=== PATIENT | female | born 2000 | race African-American/Black ===

== ENCOUNTER 2022-04-08 20:52 | Emergency (ER) | payer MEDICAID, OTHER ==
[~2022-04-08] VITALS: Ht 165.1 cm; Wt 60.8 kg
[~2022-04-08 20:52] MED LIST: DIVA-75 PO; FISH OIL; IMIPRAMINE; MELA3TAB40 PO; RISP1TAB97 PO
[2022-04-08] MEDS ORDERED: ACETAMINOPHEN 325MG TABLET PO ONE (21:45)
[2022-04-08] MEDS ORDERED: KETOROLAC 15MG/ML VIAL IV ONE (21:45)
[2022-04-08] MEDS ORDERED: SODIUM CHLORIDE 0.9% 1000ML BAG (SEPSIS BOLUS) IV ONE (21:45)
[2022-04-08 22:19] LABS: HEMATOCRIT. 35.2 % (36.0-48.0); HEMOGLOBIN. 11.8 g/dL (12.0-16.0); MEAN CORPUSCULAR HEMOGLOBIN 28.9 pg (28.0-32.0); MEAN CORPUSCULAR VOLUME 86.4 fL (81.0-99.0); MEAN PLATELET VOLUME 8.7 fl (7.4-10.4); PLATELET 175 x1000/uL (130-400); RED BLOOD CELL COUNT 4.08 mill/uL (4.2-5.4); RED CELL DISTRIBUTION WIDTH 13.4 % (11.6-14.6)
[2022-04-08 22:41] LABS: PLATELET ESTIMATE NORMAL
[2022-04-08 22:46] LABS: HCG SCREEN NEGATIVE
[2022-04-08 22:56] LABS: CLARITY URINE CLEAR (CLEAR); COLOR URINE YELLOW (YELLOW); KETONES URINE NEGATIVE (NEGATIVE); LEUKOCYTE ESTERASE URINE NEGATIVE (NEGATIVE); NITRITE URINE NEGATIVE (NEGATIVE); OCCULT BLOOD URINE NEGATIVE (NEGATIVE); PH URINE 7.5 (4.5-8.0); PROTEIN URINE NEGATIVE (NEGATIVE); SPECIFIC GRAVITY URINE 1.006 (1.005-1.030); UROBILINOGEN URINE 0.2 E.U./dL (0.2-1.0)
[2022-04-08 23:03] LABS: CHLORIDE 110 mEq/L (98-107)
[2022-04-08] MEDS ORDERED: IBUP-2028 MT (23:42)
[2022-04-09 00:04] VITALS: BP 115/49
== END 2022-04-09 00:06 | disposition home or self-care (01) ==
LOC: ER 20:52
DX: U07.1 COVID-19 (principal); B34.9 Viral infection, unspecified; J02.9 Acute pharyngitis, unspecified
CPT/HCPCS: 36415; 71045; 80053; 81003; 83605; 84145; 84703; 85025; 87040; 87086; 87426; 93005; 96361; 96374; 99285; C9803; J1885; J7030

== ENCOUNTER 2023-05-23 22:52 | Emergency (ER) | payer MEDICAID ==
[~2023-05-23] VITALS: Ht 162.6 cm; Wt 59.7 kg
[~2023-05-23 22:52] MED LIST changes: +IBUP-2028 MT
[2023-05-23 23:09] VITALS: O2SAT 99
[2023-05-23 23:38] LABS: BASOPHILS % 0.5 % (0.0-2.0); EOSINOPHILS % 1.2 % (0.0-5.0); HEMOGLOBIN. 11.3 g/dL (12.0-16.0); LYMPHOCYTES % 22.9 % (20.0-50.0); MEAN CORPUSCULAR VOLUME 86.3 fL (81.0-99.0); MEAN PLATELET VOLUME 8.1 fl (7.4-10.4); MONOCYTES % 11.8 % (2.0-8.0); NEUTROPHILS % 63.6 % (40.0-76.0); PLATELET 298 x1000/uL (130-400); RED BLOOD CELL COUNT 4.05 mill/uL (4.2-5.4); RED CELL DISTRIBUTION WIDTH 13.9 % (11.6-14.6)
[2023-05-23 23:46] LABS: CHLORIDE 110 mEq/L (98-107)
[2023-05-23 23:56] LABS: ETHANOL BLOOD < 10 mg/dL (-10)
[2023-05-24 05:37] LABS: CLARITY URINE TURBID (CLEAR); COLOR URINE DARK YELLOW (YELLOW); KETONES URINE TRACE (NEGATIVE); LEUKOCYTE ESTERASE URINE 1+ (NEGATIVE); NITRITE URINE POSITIVE (NEGATIVE); OCCULT BLOOD URINE 3+ (NEGATIVE); PH URINE 5.5 (4.5-8.0); PROTEIN URINE 1+ (NEGATIVE); SPECIFIC GRAVITY URINE 1.034 (1.005-1.030)
[2023-05-24 05:38] LABS: BASOPHILS % 0.5 % (0.0-2.0); EOSINOPHILS % 2.3 % (0.0-5.0); HEMOGLOBIN. 11.8 g/dL (12.0-16.0); LYMPHOCYTES % 27.1 % (20.0-50.0); MEAN CORPUSCULAR HEMOGLOBIN 29.2 pg (28.0-32.0); MEAN CORPUSCULAR VOLUME 86.5 fL (81.0-99.0); MEAN PLATELET VOLUME 8.2 fl (7.4-10.4); MONOCYTES % 10.3 % (2.0-8.0); NEUTROPHILS % 59.8 % (40.0-76.0); PLATELET 272 x1000/uL (130-400); RED BLOOD CELL COUNT 4.05 mill/uL (4.2-5.4); RED CELL DISTRIBUTION WIDTH 13.6 % (11.6-14.6)
[2023-05-24 05:48] LABS: CHLORIDE 109 mEq/L (98-107)
[2023-05-24 05:56] LABS: ETHANOL BLOOD < 10 mg/dL (-10)
[2023-05-24 06:11] LABS: *AMPHETAMINES SCREEN URINE NEGATIVE (NEGATIVE); *BARBITURATES SCREEN URINE NEGATIVE (NEGATIVE); *BENZODIAZEPINES SCREEN URINE NEGATIVE (NEGATIVE); *COCAINE SCREEN URINE NEGATIVE (NEGATIVE); CANNABINOID URINE SCREEN NEGATIVE (NEGATIVE); METHADONE URINE SCREEN NEGATIVE (NEGATIVE); OPIATES URINE SCREEN NEGATIVE (NEGATIVE); PHENCYCLIDINE URINE SCREEN NEGATIVE (NEGATIVE)
[2023-05-24] MEDS ORDERED: SULFAMETHOXAZOLE/TRIMETHOPRIM 800/160MG TABLET PO ONE (10:45)
[2023-05-24 16:14] VITALS: BP 120/80; PULSE 80; RESP 16; TEMP 98.1
== END 2023-05-24 16:15 | disposition home or self-care (01) ==
LOC: ER 22:56
DX: F60.3 Borderline personality disorder (principal); Z20.822 Contact with and (suspected) exposure to COVID-19
CPT/HCPCS: 80053 ×2; 81025; 80307 ×2; 80329 ×2; 80320 ×2; 85025 ×2; 36415 ×2; 99283; 80305; 81003; 87086; 87186; 87426; C9803; G0480

== ENCOUNTER 2024-09-22 20:54 | Emergency (ER) | payer MEDICAID ==
[~2024-09-22] VITALS: Ht 162.6 cm; Wt 59.0 kg
[~2024-09-22 20:54] MED LIST changes: +RISP-28 PO; -RISP1TAB97 PO
[2024-09-22 21:19] VITALS: BP 140/83; PULSE 90; TEMP 98.2; O2SAT 98
[2024-09-22] MEDS ORDERED: T3 PO (21:56)
[2024-09-22] MEDS ORDERED: IBUP-2028 PO (21:57)
[2024-09-22 22:15] VITALS: RESP 18
[2024-09-22] MEDS: ACETAMINOPHEN 325MG TABLET PO ONE (22:15)
== END 2024-09-22 23:30 | disposition home or self-care (01) ==
LOC: ER 20:54
DX: M25.551 Pain in right hip (principal); M25.561 Pain in right knee; Z91.018 Allergy to other foods; Z91.09 Other allergy status, other than to drugs and biological substances; Z79.899 Other long term (current) drug therapy
CPT/HCPCS: 71045; 73552; 99284